=== PATIENT | male | born 1990 | race American Indian/Alaskan Native ===

== ENCOUNTER 2017-01-27 00:33 | Emergency (ER) | payer BC ==
[2017-01-27 03:26] VITALS: BP 132/85
[2017-01-27] MEDS ORDERED: DECADRON IM ONE (04:37)
[2017-01-27] MEDS ORDERED: TORADOL IM ONE (04:37)
--- NOTE | 2017-01-27 04:37 | Emergency Department Report ---
ED Headache HPI - General Chief Complaint: Headache Stated Complaint: VOMITING/FEVER/EARACHE/HEADACHE Time Seen by Provider: 01/27/17 04:25 Source: patient - History of Present Illness Initial Comments: Patient here reports that he has headache, fever, vomiting earache and has been getting worse over the last 2 days. Patient reports that he get sinus infection 3 times a year and it feels like he is having a sinus infection he said he started with nasal congestion about a week ago now is having pressure in his face and in his forehead and his pain is 4-10 and feels achy. He denies any head injury. Denies any nausea . He said he vomited once yesterday. Denies any dizziness or blurred vision. He said whenever the weather changed she always gets this infection. He said he took [id number] sinus medication but it didn't help. Timing/Duration: increasing, waxing and waning Quality: mild Head Injury Location: frontal Recent Head Trauma: occasional headaches Modifying Factors: improves with: exposure to light Associated Symptoms: facial pain, fever/chills, nasal congestion, nasal drainage , sinus infection. denies: confusion, fatigue, flushing, loss of consciousness , nausea/vomiting, numbness in legs/feet, rash, seizures, stiff neck, vision changes, weakness Allergies/Adverse Reactions: Allergies No Known Allergies Allergy (Unverified 01/27/17 00:43) Home Medications: Ambulatory Orders Amoxicillin/K Clav Tab [Augmentin 875 mg] 1 tab PO Q12HR #14 tab 01/27/17 Cetirizine HCl [ZyrTEC] 10 mg PO QDAY #14 capsule 01/27/17 Fluticasone [Flonase] 1 spray NS QDAY #1 bottle 01/27/17 predniSONE [Deltasone] 50 mg PO QDAY #5 tab 01/27/17 ED Review of Systems ROS: Stated complaint: VOMITING/FEVER/EARACHE/HEADACHE Other details as noted in HPI Comment: All other systems reviewed and negative Constitutional: fever. denies: chills Eyes: denies: eye pain, eye discharge, vision change ENT: ear pain, congestion. denies: throat pain, dental pain, hearing loss Respiratory: no symptoms reported Cardiovascular: denies: chest pain, palpitations, edema, syncope Gastrointestinal: vomiting. denies: abdominal pain, nausea Musculoskeletal: denies: back pain, arthralgia Skin: denies: rash Neurological: headache. denies: weakness, numbness, paresthesias, confusion, abnormal gait, vertigo ED Past Medical Hx - Past Medical History Previous Medical History?: No - Surgical History Past Surgical History?: No - Family History Family history: no significant - Social History Smoking Status: Current Every Day Smoker Substance Use Type: None - Medications Home Medications: Home Medications Medication Instructions Recorded Confirmed Last Taken Type Amoxicillin/K Clav Tab [Augmentin 1 tab PO Q12HR #14 tab 01/27/17 Unknown Rx 875 mg] Cetirizine HCl [ZyrTEC] 10 mg PO QDAY #14 capsule 01/27/17 Unknown Rx Fluticasone [Flonase] 1 spray NS QDAY #1 bottle 01/27/17 Unknown Rx predniSONE [Deltasone] 50 mg PO QDAY #5 tab 01/27/17 Unknown Rx ED Physical Exam - General Limitations: No Limitations General appearance: alert, in no apparent distress - Head Head exam: Present: atraumatic, normocephalic, normal inspection - Expanded Head Exam Expanded Head exam: Absent: laceration, abrasion, contusion, hematoma, racoon eyes, monson's sign, general tenderness, tenderness of temporal artery, CSF rhinorrhea , CSF otorrhea - Eye Eye exam: Present: normal appearance, PERRL, EOMI. Absent: conjunctival injection, nystagmus, periorbital swelling, periorbital tenderness Pupils: Present: normal accommodation - ENT ENT exam: Present: normal orophraynx, mucous membranes moist, normal external ear exam, other (bilateral nasal mucosa congested with clear drainage, erythema. Bilateral frontal and maxillary sinuses tender to palpate.). Absent : TM's normal bilaterally (lateral TMs congested without erythema) - Neck Neck exam: Present: normal inspection, full ROM. Absent: tenderness, meningismus, lymphadenopathy - Respiratory Respiratory exam: Present: normal lung sounds bilaterally. Absent: respiratory distress, chest wall tenderness - Cardiovascular Cardiovascular Exam: Present: regular rate, normal rhythm, normal heart sounds - GI/Abdominal GI/Abdominal exam: Present: soft, normal bowel sounds. Absent: distended, tenderness, guarding, rebound, rigid - Extremities Exam Extremities exam: Present: normal inspection, full ROM, normal capillary refill. Absent: tenderness, pedal edema, joint swelling, calf tenderness - Back Exam Back exam: Present: normal inspection, full ROM. Absent: tenderness, CVA tenderness (R), CVA tenderness (L), muscle spasm, paraspinal tenderness, vertebral tenderness, rash noted - Neurological Exam Neurological exam: Present: alert, oriented X3, normal gait, reflexes normal. Absent: motor sensory deficit - Expanded Neurological Exam Expanded Neurological exam: Absent: innattentive, memory loss-remote event, ataxia, receptive aphasia Patient oriented to: Present: person, place, time Speech: Present: fluid speech Cranial nerves: EOM's Intact: Normal, Gag Reflex: Normal, Tongue Deviation: Normal, Nystagmus: Normal, Facial Sensation: Normal Cerebellar function: Romberg: Normal Upper motor neuron: Pronator Drift: Normal, Sensory Extinction: Normal Sensory exam: Upper Extremity Light Touch: Normal, Upper Extremity Temperature: Normal, UE 2 Point Discrimination: Normal, Lower Extremity Light Touch: Normal, Lower Extremity Temperature: Normal, LE 2 Point Discrimination: Normal Motor strength exam: RUE: 5, LUE: 5, RLE: 5, LLE: 5 DTR: bicep (R): 2+, bicep (L): 2+, tricep (R): 2+, tricep (L): 2+, knee (R): 2+ , knee (L): 2+, ankle (R): 2+, ankle (L): 2+ Best Eye Response ([place]): (4) open spontaneously Best Motor Response (Betty): (6) obeys commands Best Verbal Response ([place]): (5) oriented Betty Total: 15 - Psychiatric Psychiatric exam: Present: normal affect, normal mood - Skin Skin exam: Present: warm, dry, intact, normal color. Absent: rash ED Course Vital Signs 01/27/17 01/27/17 00:43 03:25 Temperature 98 F Pulse Rate 66 60 Respiratory 18 18 Rate Blood Pressure 144/92 Blood Pressure 132/85 [Right] O2 Sat by Pulse 100 99 Oximetry - Reevaluation(s) Reevaluation #1: Patient given Decadron 10 mg IM and Toradol 60 mg IM which she said he felt better after. ED Medical Decision Making - Medical Decision Making ED course: Patient with acute sinusitis and headache, otalgia. He says given Decadron 10 mg IM and Toradol 60 mg IM and emergency room which relieved his headache. I discussed the patient diagnosis and treatment plan and it was understanding. Patient discharged home with prescription for Augmentin, Zyrtec , Flonase and prednisone. Patient to follow-up with his primary care physician in 2-3 days and if he doesn't have one to follow-up at [facility]. Critical care attestation.: If time is entered above; I have spent that time in minutes in the direct care of this critically ill patient, excluding procedure time. ED Disposition Clinical Impression: Acute bacterial rhinosinusitis, Otalgia, bilateral Headache Qualifiers: Headache type: unspecified Headache chronicity pattern: acute headache Intractability: not intractable Qualified Code(s): R51 - Headache Disposition: DISCHARGED TO HOME OR SELFCARE Is pt being admited?: No Does the pt Need Aspirin: No Condition: Stable Instructions: Acute Bacterial Rhinosinusitis (ED), Acute Headache (ED), Earache (ED) Additional Instructions: Please follow up with your primary care physician if you do not have one week and follow-up with [facility] Take medication as prescribed for sinus infection. Increase her fluid intake. Please rinse your nostrils with nasal saline. Prescriptions: Amoxicillin/K Clav Tab [Augmentin 875 mg] 1 tab PO Q12HR #14 tab Cetirizine HCl [ZyrTEC] 10 mg PO QDAY #14 capsule Fluticasone [Flonase] 1 spray NS QDAY #1 bottle predniSONE [Deltasone] 50 mg PO QDAY #5 tab Referrals: PRIMARY CARE, [Primary Care Provider] - 2-3 Days [facility] [Outside] - 2-3 Days Forms: Work/School Release Form(ED)
== END 2017-01-27 06:51 | disposition home or self-care (01) ==
LOC: ED 00:33
DX: J01.90 Acute sinusitis, unspecified (principal); B96.89 Other specified bacterial agents as the cause of diseases classified elsewhere; H92.03 Otalgia, bilateral; R51 Headache; F17.200 Nicotine dependence, unspecified, uncomplicated
CPT/HCPCS: 96372; 99282; J1100; J1885